=== PATIENT | female | born 1970 | race Hispanic/Latino ===

== ENCOUNTER 2018-09-16 13:09 | Emergency (ER) | payer BC ==
[2018-09-16 14:06] LABS: Absolute Lymphocytes (CBC) 1.2 K/uL (0.7-4.9); Absolute Monocytes 0.4 K/uL (0.1-1.3); Absolute Neutrophil 5.9 K/uL (1.8-8.0); Basophils % 0.4 % (0-1.3); Eosinophils % 0.2 % (0-4.4); Hematocrit 37.7 % (36.0-45.0); Lymphocytes % 15.9 % (15.3-44.8); MCH 30.1 pg (27.0-35.0); MPV 10.2 fL (7.6-11.3); Monocytes % 5.2 % (3.3-12.3); RBC Red Blood Cell Count 4.23 M/uL (3.86-4.86)
[2018-09-16 14:08] LABS: BUN Blood Urea Nitrogen 13 mg/dL (7-18); Bicarbonate 23 mmol/L (21-32); Glucose Level 318 mg/dL (74-106); Potassium 4.5 mmol/L (3.5-5.1); Sodium Level 136 mmol/L (136-145); Troponin (Emerg Dept Use Only) < 0.02 ng/mL (0.0-0.045)
[2018-09-16 15:12] LABS: Urine Blood NEGATIVE (NEG); Urine Glucose 2+ (NEG); Urine Protein NEGATIVE (NEG); Urine pH 5.5 (5.0-7.0)
--- NOTE | 2018-09-16 15:19 | EKG ---
Test Date: 2018-09-16 Test Time: 14:45:10 Tnt Powder Worker: KENDRA MEASUREMENT RESULTS: Intervals: Rate: 95 MS: 124 QRSD: 60 QT: 356 QTc: 447 [place]: P: 59 MS: 124 QRS: -23 T: 37 INTERPRETIVE STATEMENTS: Normal sinus rhythm Normal ECG Compared to ECG 05/26/2009 00:19:11 Ventricular premature complex(es) no longer present Electronically Signed On 09-16-18 15:18:34 ENGAGEMENT EXECUTIVE by Joaquim Garcia
[2018-09-16 15:23] LABS: Urine Bacteria >50 /HPF (<20); Urine Culture Reflex Order REFLEXED
--- NOTE | 2018-09-16 15:24 | EDPHYS ---
Physician Documentation [facility] Name: Lindsey Dee Age: 48 yrs Sex: Female : 1970 Arrival Date: 09/16/2018 Time: 13:10 Bed 27 Private MD: ED Physician Ralph Gasca HPI: 09/16 13:30 This 48 yrs old Female presents to ER via EMS with complaints of rn lightheadedness. 13:30 REports in line at [facility], felt lightheaded, trouble concentrating, has not been aking rn her insulin or oral diabetic meds due to lack of appetite, feels like may be depression due to taking care of family member with leukemia. No chest pain/sob/vomiting/diarrhea. . Onset: The symptoms/episode began/occurred just prior to arrival. Severity of symptoms: At their worst the symptoms were moderate in the emergency department the symptoms have improved. The patient has not experienced similar symptoms in the past. The patient has not recently seen a physician. Given fluids by EMS for mild tachycardia, and now symptoms have improved. No focal neurological complaints.. 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 - Social history:: Smoking status: unknown. - Ebola Screening: : No symptoms or risks identified at this time. - Family history:: not pertinent. - Hospitalizations: : No recent hospitalization is reported. ROS: 13:30 Constitutional: Negative for fever, chills, and weight loss, Eyes: Negative for injury, rn pain, redness, and discharge, Neck: Negative for injury, pain, and swelling, Cardiovascular: Negative for chest pain, palpitations, and edema, Respiratory: Negative for shortness of breath, cough, wheezing, and pleuritic chest pain, Abdomen/GI: Negative for abdominal pain, nausea, vomiting, diarrhea, and constipation, MS/Extremity: Negative for injury and deformity, Skin: Negative for injury, rash, and discoloration, Neuro: Negative for headache, numbness, tingling, and seizure. Exam: 13:30 Constitutional: This is a well developed, well nourished patient who is awake, alert, rn and in no acute distress. Head/Face: Normocephalic, atraumatic. Eyes: Pupils equal round and reactive to light, extra-ocular motions intact. Lids and lashes normal. Conjunctiva and sclera are non-icteric and not injected. Cornea within normal limits. Periorbital areas with no swelling, redness, or edema. ENT: dry MM Cardiovascular: regular, tachycardic, no murmur Respiratory: Lungs have equal breath sounds bilaterally, clear to auscultation. No increased work of breathing, no retractions or nasal flaring. Abdomen/GI: soft, non-tender MS/ Extremity: Pulses equal, no cyanosis. Neurovascular intact. Full, normal range of motion. Equal circumference. Neuro: Awake and alert, GCS 15, oriented to person, place, time, and situation. Cranial nerves II-XII grossly intact. Motor strength 5/5 in all extremities. Sensory grossly intact. Cerebellar exam normal. 14:53 ECG was reviewed by the Attending Physician. rn Vital Signs: 13:21 BP 138 / 63; Pulse 126; Resp 18; Temp 98.6; Pulse Ox 100% ; tl3 14:45 BP 132 / 69; Pulse 90; Resp 18; Pulse Ox 100% on R/A; tl3 15:47 BP 146 / 61; Pulse 90; Resp 18; Pulse Ox 100% on R/A; tl3 MDM: 13:10 Patient medically screened. rn 15:20 Differential Diagnosis hyperglycemia, UTI, dehydration, DKA, HHS. Data reviewed: vital rn signs, nurses notes, lab test result(s), EKG, and as a result, I will discharge patient. Counseling: I had a detailed discussion with the patient and/or guardian regarding: the historical points, exam findings, and any diagnostic results supporting the discharge/admit diagnosis, lab results, the need for outpatient follow up, to return to the emergency department if symptoms worsen or persist or if there are any questions or concerns that arise at home. Special discussion: I discussed with the patient/guardian in detail that at this point there is no indication for admission to the hospital. It is understood, however, that if the symptoms persist or worsen the patient needs to return immediately for re-evaluation. ED course: Counseled patient regarding need for better diabetic monitoring and medication compliance, will dc home with macrobid for UTI.. 09/16 13:24 Order name: CBC with Diff; Complete Time: 14:30 rn 09/16 13:24 Order name: Basic Metabolic Panel; Complete Time: 14:52 rn 09/16 13:24 Order name: Urine Microscopic Only rn 09/16 13:24 Order name: Troponin (emerg Dept Use Only); Complete Time: 14:52 rn 09/16 13:24 Order name: Ketone, Serum; Complete Time: 14:52 rn 09/16 15:02 Order name: Urine Dipstick--Ancillary (enter results); Complete Time: 15:19 bd 09/16 13:24 Order name: EKG; Complete Time: 13:25 rn 09/16 13:24 Order name: EKG - Nurse/Tech; Complete Time: 13:42 rn 09/16 15:24 Order name: Urine Culture EDMS EC:53 Rate is 95 beats/min. Rhythm is regular. QRS [place] is Normal. TN interval is normal. QRS rn interval is normal. QT interval is normal. No Q waves. T waves are Normal. No ST changes noted. Clinical impression: Normal ECG. Interpreted by me. Administered Medications: 13:27 Drug: NS 0.9% 1000 ml Route: IV; Rate: 1000 ml; Site: right antecubital; Delivery: tl3 Primary tubing; 14:47 Follow up: IV Status: Completed infusion; IV Intake: 1000ml tl3 Point of Care Testing: Blood Glucose: 13:21 Blood Glucose: 339 mg/dL; tl3 15:09 Blood Glucose: 208 mg/dL; tl3 Ranges: Critical Glucose Levels:Adult <50 mg/dl or >400 mg/dl <40 mg/dl or >180 mg/dl Disposition: 09/16/18 15:23 Discharged to Home. Impression: Hyperglycemia, unspecified, Urinary tract infection, site not specified, Dehydration. - Condition is Stable. - Discharge Instructions: Dehydration, Adult, Hyperglycemia, Urinary Tract Infection, Adult, Blood Glucose Monitoring, Adult. - Prescriptions for Macrobid 100 mg Oral Capsule - take 1 capsule by ORAL route every 12 hours for 7 days; 14 capsule. - Medication Reconciliation Form, Thank You Letter, Antibiotic Education, Prescription Opioid Use form. - Follow up: Private Physician; When: As needed; Reason: Recheck today's complaints, Re-evaluation by your physician. - Problem is new. - Symptoms have improved. Signatures: Dispatcher [employer] EDRalph Monroy MD MD rn Lowrey, Tammy, RN RN tl3 Corrections: (The following items were deleted from the chart) 15:50 15:23 09/16/2018 15:23 Discharged to Home. Impression: Hyperglycemia, unspecified; tl3 Urinary tract infection, site not specified; Dehydration. Condition is Stable. Forms are Medication Reconciliation Form, Thank You Letter, Antibiotic Education, Prescription Opioid Use. Follow up: Private Physician; When: As needed; Reason: Recheck today's complaints, Re-evaluation by your physician. Problem is new. Symptoms have improved. rn
--- NOTE | 2018-09-16 15:24 | ER ---
Nurse's Notes [facility] Name: Lindsey Dee Age: 48 yrs Sex: Female : 1970 Arrival Date: 09/16/2018 Time: 13:10 Bed 27 Private MD: Diagnosis: Hyperglycemia, unspecified;Urinary tract infection, site not specified;Dehydration Presentation: 09/16 13:15 Presenting complaint: EMS states: Elevated blood glucose of 339, visual disturbances, tl3 difficulty with concentration, light headed, depression. Transition of care: patient was not received from another setting of care. Onset of symptoms was September 16, 2018 at 13:16. Risk Assessment: Do you want to hurt yourself or someone else? Patient reports no desire to harm self or others. Initial Sepsis Screen: Does the patient meet any 2 criteria? No. Patient's initial sepsis screen is negative. Does the patient have a suspected source of infection? No. Patient's initial sepsis screen is negative. Care prior to arrival: Medication(s) given: Normal saline infusion, 1000 mL, 250ml infused en route IV initiated. 20 GA, in the right antecubital area. 13:15 Method Of Arrival: EMS: [facility] tl3 13:15 Acuity: PAM 3 tl3 Triage Assessment: 13:21 General: Appears in no apparent distress. well groomed, well developed, Behavior is tl3 calm, cooperative, appropriate for age, flat, quiet. Pain: Denies pain. EENT: No deficits noted. No signs and/or symptoms were reported regarding the EENT system. Neuro: No deficits noted. Level of Consciousness is awake, alert, obeys commands, Oriented to person, place, time, situation, Appropriate for age. Neuro: Reports light headed. Cardiovascular: Heart tones S1 S2 present. Respiratory: Airway is patent Breath sounds are clear bilaterally. GI: Abdomen is flat, Bowel sounds hypoactive in left upper quadrant and left lower quadrant. GI: Reports anorexia, unintentional weight loss of 20-30 # since the beginning of summer. : No signs and/or symptoms were reported regarding the genitourinary system. Derm: No signs and/or symptoms reported regarding the dermatologic system. Musculoskeletal: No signs and/or symptoms reported regarding the musculoskeletal system. 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 - Social history:: Smoking status: unknown. - Ebola Screening: : No symptoms or risks identified at this time. - Family history:: not pertinent. - Hospitalizations: : No recent hospitalization is reported. Screenin:29 Abuse screen: Denies threats or abuse. Nutritional screening: Had unintentional weight tl3 loss of 10 pounds or more. Tuberculosis screening: No symptoms or risk factors identified. Fall Risk None identified. Assessment: 13:29 Reassessment: No changes from previously documented assessment. tl3 14:45 Reassessment: Patient and/or family updated on plan of care and expected duration. Pain tl3 level reassessed. Patient is alert, oriented x 3, equal unlabored respirations, skin warm/dry/pink. pt has had bouts of crying, tissue and pastoral care offered. 15:47 Reassessment: Patient appears in no apparent distress at this time. No changes from tl3 previously documented assessment. Patient and/or family updated on plan of care and expected duration. Pain level reassessed. Patient is alert, oriented x 3, equal unlabored respirations, skin warm/dry/pink. Vital Signs: 13:21 BP 138 / 63; Pulse 126; Resp 18; Temp 98.6; Pulse Ox 100% ; tl3 14:45 BP 132 / 69; Pulse 90; Resp 18; Pulse Ox 100% on R/A; tl3 15:47 BP 146 / 61; Pulse 90; Resp 18; Pulse Ox 100% on R/A; tl3 ED Course: 13:10 Patient arrived in ED. bd 13:10 Ralph Gasca MD is Attending Physician. rn 13:14 Nica Naik RN is Primary Nurse. tl3 13:17 Triage completed. tl3 13:21 Arm band placed on right wrist. tl3 13:29 Patient has correct armband on for positive identification. tl3 13:29 No provider procedures requiring assistance completed. Maintain EMS IV. Dressing tl3 intact. Good blood return noted. Site clean \T\ dry. Gauge \T\ site: 20 g RAC. 13:51 EKG done, by nuclear fuel enrichment technician. reviewed by Ralph Gasca MD. sm3 14:45 Pulse ox on. NIBP on. tl3 14:45 Urine collected: clean catch specimen, clear. tl3 15:47 IV discontinued, intact, bleeding controlled, No redness/swelling at site. Pressure tl3 dressing applied. Administered Medications: 13:27 Drug: NS 0.9% 1000 ml Route: IV; Rate: 1000 ml; Site: right antecubital; Delivery: tl3 Primary tubing; 14:47 Follow up: IV Status: Completed infusion; IV Intake: 1000ml tl3 Point of Care Testing: Blood Glucose: 13:21 Blood Glucose: 339 mg/dL; tl3 15:09 Blood Glucose: 208 mg/dL; tl3 Ranges: Intake: 14:47 IV: 1000ml; Total: 1000ml. tl3 Outcome: 15:23 Discharge ordered by . rn 15:47 Discharged to home ambulatory. tl3 15:47 Condition: stable 15:47 Discharge instructions given to patient, Instructed on discharge instructions, follow up and referral plans. Demonstrated understanding of instructions, follow-up care, medications, Prescriptions given X 1. 15:50 Patient left the ED. tl3 Signatures: Antonina Worrell Roman, MD MD rn Lowrey, Tammy, RN RN 3 Bonnie Chavez 3
== END 2018-09-16 15:50 | disposition home or self-care (01) ==
LOC: ER 13:09
DX: E11.65 Type 2 diabetes mellitus with hyperglycemia (principal); N39.0 Urinary tract infection, site not specified; E86.0 Dehydration; Z79.4 Long term (current) use of insulin
CPT/HCPCS: 36415; 80048; 81003; 81015; 82010; 82962; 84484; 85025; 87077; 87086; 87088; 87186; 93005; 96360; 99284